=== PATIENT | female | born 1980 | race Caucasian/White ===

== ENCOUNTER → 2017-08-26 08:53 | Outpatient (CLI) | payer OTHER, SELFPAY ==
[2017-08-26 09:55] LABS: Alanine Aminotransferase 20 U/L (12-78); Albumin Level 3.7 gm/dL (3.4-5.0); Albumin/Globulin Ratio 1.2 (1.1-1.8); Alkaline Phosphatase 51 U/L (46-116); Anion Gap 7.5 mEq/L (5-15); Aspartate Amino Transferase 11 U/L (15-37); Bilirubin,Total 0.3 mg/dL (0.2-1.0); Blood Urea Nitrogen 13 mg/dL (7-18); Calcium 8.7 mg/dL (8.5-10.1); Carbon Dioxide 29 mmol/L (21.0-32.0); Chloride 107 mmol/L (98-107); Chol/HDL Ratio 2.6 (1-3.5); Cholesterol 172 mg/dL (140-200); Creatinine,Serum 0.66 mg/dL (0.55-1.02); Estimated Glomerular Filt Rate 100 ml/min (>60); GFR (African American) 121 ML/MIN (>60); Glucose 94 mg/dL (74-106); HDL Cholesterol 66 mg/dL (29-89); LDL Cholesterol 93 mg/dL (0-130); Potassium 4.5 mmoL/L (3.5-5.1); Sodium 139 mmol/L (136-145); Thyroid Stimulating Hormone 1.33 uIU/ml (0.358-3.740); Total Protein,Serum 6.7 gm/dL (6.4-8.2); Triglycerides 66 mg/dL (30-200); VLDL Cholesterol 13 mg/dL (0-40)
== END ==
PROVIDERS: PCP Internal Medicine Adolescent Medicine; Visit Provider Nurse Practitioner Family
DX: Z00.00 Encounter for general adult medical examination without abnormal findings (principal)
CPT/HCPCS: 36415; 80053; 80061; 84443

== ENCOUNTER → 2018-10-27 08:58 | Outpatient (CLI) | payer OTHER, SELFPAY ==
[2018-10-27 11:27] LABS: Alanine Aminotransferase 27 U/L (12-78); Albumin Level 3.9 gm/dL (3.4-5.0); Albumin/Globulin Ratio 1.3 (1.1-1.8); Alkaline Phosphatase 44 U/L (46-116); Anion Gap 14.4 mEq/L (5-15); Aspartate Amino Transferase 15 U/L (15-37); Bilirubin,Total 0.2 mg/dL (0.2-1.0); Blood Urea Nitrogen 12 mg/dL (7-18); Calcium 9.2 mg/dL (8.5-10.1); Carbon Dioxide 27 mmol/L (21.0-32.0); Chloride 104 mmol/L (98-107); Chol/HDL Ratio 2.5 (1-3.5); Cholesterol 161 mg/dL (140-200); Creatinine,Serum 0.78 mg/dL (0.55-1.02); Estimated Glomerular Filt Rate 82 ml/min (>60); GFR (African American) 99 ML/MIN (>60); Glucose 93 mg/dL (74-106); HDL Cholesterol 64 mg/dL (29-89); LDL Cholesterol 75 mg/dL (0-130); Potassium 4.4 mmoL/L (3.5-5.1); Sodium 141 mmol/L (136-145); Thyroid Stimulating Hormone 1.87 uIU/ml (0.358-3.740); Total Protein,Serum 6.9 gm/dL (6.4-8.2); Triglycerides 112 mg/dL (30-200); VLDL Cholesterol 22 mg/dL (0-40)
== END ==
PROVIDERS: Visit Provider Nurse Practitioner Family
DX: Z01.419 Encounter for gynecological examination (general) (routine) without abnormal findings (principal); Z68.31 Body mass index [BMI] 31.0-31.9, adult
CPT/HCPCS: 36415; 80053; 80061; 84443

== ENCOUNTER → 2019-12-21 09:21 | Outpatient (CLI) | payer OTHER, SELFPAY ==
[2019-12-21 10:51] LABS: Basophils % 0.6 % (0.1-2.0); Eosinophils # 0.2 K/mm3 (0.0-0.4); Eosinophils % 2.9 % (0.1-12.0); Hematocrit 40.8 % (37.0-47.0); Hemoglobin 13.4 g/dL (12.2-16.2); Lymphocytes # 1.7 K/mm3 (0.7-4.5); Lymphocytes % 28.7 % (10-50); Mean Corpuscular HGB Conc 32.8 g/dL (31.8-35.4); Mean Corpuscular Hemoglobin 30.3 pg (27.0-31.2); Mean Corpuscular Volume 92.5 fl (81-99); Mean Platelet Volume 8.1 fl (7.4-10.4); Monocytes # 0.4 K/mm3 (0.1-1.0); Monocytes % 6.9 % (1.7-9.3); Neutrophils # 3.7 K/mm3 (1.8-7.8); Neutrophils % 60.9 % (37.0-80.0); Platelet Count 357 K/mm3 (142-424); Red Blood Count 4.41 M/mm3 (4.20-5.40); White Blood Count 6.1 K/mm3 (4.8-10.8)
[2019-12-21 12:17] LABS: Alanine Aminotransferase 17 U/L (12-78); Albumin Level 4.6 g/dl (3.5-5.0); Albumin/Globulin Ratio 1.7 (1.1-1.8); Alkaline Phosphatase 60 U/L (38-126); Anion Gap 13.6 mEq/L (5-15); Aspartate Amino Transferase 23 U/L (14-36); Bilirubin,Total 0.5 mg/dl (0.2-1.3); Blood Urea Nitrogen 12 mg/dl (7-17); Calcium 9.9 mg/dl (8.4-10.2); Carbon Dioxide 27 mmol/L (22.0-30.0); Chloride 103 mmol/L (98-107); Chol/HDL Ratio 2.4 (1-3.5); Cholesterol 197 mg/dl (140-200); Estimated Glomerular Filt Rate 79 ml/min (>60); GFR (African American) 96 ML/MIN (>60); Globulin 2.7 g/dL (1.3-3.2); Glucose 98 mg/dl (74-100); HDL Cholesterol 83 mg/dl (40-60); Potassium 4.6 mmoL/L (3.5-5.1); Sodium 139 mmol/L (136-145); Total Protein,Serum 7.3 g/dl (6.3-8.2); Triglycerides 79 mg/dl (30-150); VLDL Cholesterol 16 mg/dL (0-40)
[2019-12-21 12:29] LABS: Direct LDL Cholesterol 89.74 mg/dL (100-129)
[2019-12-21 12:48] LABS: Thyroid Stimulating Hormone 1.83 uIU/mL (0.465-4.68)
== END ==
PROVIDERS: Visit Provider Nurse Practitioner Family
DX: Z00.00 Encounter for general adult medical examination without abnormal findings (principal)
CPT/HCPCS: 36415; 80053; 80061; 84443; 85025

== ENCOUNTER → 2020-11-07 09:22 | Outpatient (CLI) | payer OTHER, SELFPAY ==
[2020-11-07 10:19] LABS: Chloride 106 mmol/L (98-107); Potassium 4.7 mmoL/L (3.5-5.1); Sodium 140 mmol/L (136-145)
[2020-11-07 10:21] LABS: Alanine Aminotransferase 15 U/L (12-78); Albumin Level 4.4 g/dl (3.5-5.0); Albumin/Globulin Ratio 1.7 (1.1-1.8); Alkaline Phosphatase 57 U/L (38-126); Anion Gap 14.7 mEq/L (5-15); Aspartate Amino Transferase 21 U/L (14-36); Bilirubin,Total 0.2 mg/dl (0.2-1.3); Blood Urea Nitrogen 12 mg/dl (7-17); Carbon Dioxide 24 mmol/L (22.0-30.0); Estimated Glomerular Filt Rate 92 ml/min (>60); GFR (African American) 112 ML/MIN (>60); Globulin 2.6 g/dL (1.3-3.2)
[2020-11-07 10:22] LABS: Calcium 9.5 mg/dl (8.4-10.2); Chol/HDL Ratio 3.3 (1-3.5); Cholesterol 186 mg/dl (140-200); Glucose 99 mg/dl (74-100); HDL Cholesterol 56 mg/dl (40-60); Triglycerides 111 mg/dl (30-150); VLDL Cholesterol 22 mg/dL (0-40)
[2020-11-07 10:33] LABS: Direct LDL Cholesterol 106.85 mg/dL (100-129)
[2020-11-07 10:48] LABS: Basophils % 0.5 % (0.1-2.0); Eosinophils # 0.2 K/mm3 (0.0-0.4); Eosinophils % 3.4 % (0.1-12.0); Hematocrit 40.3 % (37.0-47.0); Hemoglobin 12.7 g/dL (12.2-16.2); Mean Corpuscular HGB Conc 31.6 g/dL (31.8-35.4); Mean Corpuscular Hemoglobin 29.4 pg (27.0-31.2); Mean Corpuscular Volume 93.1 fl (81-99); Mean Platelet Volume 8.3 fl (7.4-10.4); Monocytes # 0.4 K/mm3 (0.1-1.0); Monocytes % 5.7 % (1.7-9.3); Neutrophils # 4.1 K/mm3 (1.8-7.8); Neutrophils % 60.4 % (37.0-80.0); Platelet Count 315 K/mm3 (142-424); Red Blood Count 4.33 M/mm3 (4.20-5.40); Red Cell Distribution Width 13.6 % (11.5-17.5); White Blood Count 6.8 K/mm3 (4.8-10.8)
== END ==
PROVIDERS: Visit Provider Nurse Practitioner Family
DX: Z00.00 Encounter for general adult medical examination without abnormal findings (principal); Z85.3 Personal history of malignant neoplasm of breast
CPT/HCPCS: 36415; 80053; 80061; 85025

== ENCOUNTER → 2021-09-11 08:23 | Outpatient (CLI) | payer OTHER, SELFPAY ==
[2021-09-11 08:51] LABS: Basophils % 0.6 % (0.1-2.0); Eosinophils # 0.2 K/mm3 (0.0-0.4); Eosinophils % 4.2 % (0.1-12.0); Hemoglobin 12.5 g/dL (12.2-16.2); Lymphocytes # 1.7 K/mm3 (0.7-4.5); Lymphocytes % 30.7 % (10-50); Mean Corpuscular HGB Conc 32.9 g/dL (31.8-35.4); Mean Corpuscular Hemoglobin 29.7 pg (27.0-31.2); Mean Corpuscular Volume 90.2 fl (81-99); Mean Platelet Volume 8.3 fl (7.4-10.4); Monocytes # 0.4 K/mm3 (0.1-1.0); Monocytes % 7.1 % (1.7-9.3); Neutrophils # 3.2 K/mm3 (1.8-7.8); Neutrophils % 57.4 % (37.0-80.0); Platelet Count 299 K/mm3 (142-424); Red Blood Count 4.22 M/mm3 (4.20-5.40); Red Cell Distribution Width 13.5 % (11.5-17.5); White Blood Count 5.5 K/mm3 (4.8-10.8)
[2021-09-11 09:12] LABS: Alanine Aminotransferase 22 U/L (12-78); Albumin Level 4.1 g/dl (3.5-5.0); Albumin/Globulin Ratio 1.6 (1.1-1.8); Alkaline Phosphatase 53 U/L (38-126); Anion Gap 11.3 mEq/L (5-15); Aspartate Amino Transferase 25 U/L (14-36); Blood Urea Nitrogen 13 mg/dl (7-17); Calcium 9.5 mg/dl (8.4-10.2); Carbon Dioxide 26 mmol/L (22.0-30.0); Chloride 107 mmol/L (98-107); Chol/HDL Ratio 2.9 (1-3.5); Cholesterol 174 mg/dl (140-200); Estimated Glomerular Filt Rate 92 ml/min (>60); GFR (African American) 111 ML/MIN (>60); Globulin 2.5 g/dL (1.3-3.2); Glucose 111 mg/dl (74-100); HDL Cholesterol 60 mg/dl (40-60); Potassium 4.3 mmoL/L (3.5-5.1); Sodium 140 mmol/L (136-145); Total Protein,Serum 6.6 g/dl (6.3-8.2); Triglycerides 76 mg/dl (30-150); VLDL Cholesterol 15 mg/dL (0-40)
[2021-09-11 09:16] LABS: Bilirubin,Total < 0.1 mg/dl (0.2-1.3)
[2021-09-11 09:23] LABS: Direct LDL Cholesterol 93.85 mg/dL (100-129)
== END ==
PROVIDERS: PCP Nurse Practitioner Family; Visit Provider Nurse Practitioner Family
DX: Z00.00 Encounter for general adult medical examination without abnormal findings (principal); Z85.3 Personal history of malignant neoplasm of breast
CPT/HCPCS: 36415; 80053; 80061; 83036; 85025

== ENCOUNTER → 2022-09-17 08:11 | Outpatient (CLI) | payer OTHER, SELFPAY ==
[2022-09-17 08:47] LABS: Basophils % 0.3 % (0.1-2.0); Eosinophils # 0.2 K/mm3 (0.0-0.4); Eosinophils % 3.5 % (0.1-12.0); Hematocrit 36.9 % (37.0-47.0); Hemoglobin 11.9 g/dL (12.2-16.2); Lymphocytes # 1.7 K/mm3 (0.7-4.5); Lymphocytes % 31.5 % (10-50); Mean Corpuscular HGB Conc 32.2 g/dL (31.8-35.4); Mean Corpuscular Hemoglobin 28.5 pg (27.0-31.2); Mean Corpuscular Volume 88.7 fl (81-99); Mean Platelet Volume 8.4 fl (7.4-10.4); Monocytes # 0.3 K/mm3 (0.1-1.0); Monocytes % 6.2 % (1.7-9.3); Neutrophils # 3.2 K/mm3 (1.8-7.8); Neutrophils % 58.5 % (37.0-80.0); Platelet Count 292 K/mm3 (142-424); Red Blood Count 4.16 M/mm3 (4.20-5.40); White Blood Count 5.5 K/mm3 (4.8-10.8)
[2022-09-17 09:09] LABS: Alanine Aminotransferase 17 U/L (12-78); Albumin Level 4.3 g/dl (3.5-5.0); Albumin/Globulin Ratio 1.9 (1.1-1.8); Alkaline Phosphatase 52 U/L (38-126); Anion Gap 11.4 mEq/L (5-15); Aspartate Amino Transferase 21 U/L (14-36); Blood Urea Nitrogen 14 mg/dl (7-17); Calcium 9.1 mg/dl (8.4-10.2); Carbon Dioxide 26 mmol/L (22.0-30.0); Chloride 108 mmol/L (98-107); Chol/HDL Ratio 2.8 (1-3.5); Cholesterol 183 mg/dl (140-200); Estimated Glomerular Filt Rate 91 ml/min (>60); GFR (African American) 111 ML/MIN (>60); Globulin 2.3 g/dL (1.3-3.2); Glucose 97 mg/dl (74-100); HDL Cholesterol 65 mg/dl (40-60); Potassium 4.4 mmoL/L (3.5-5.1); Sodium 141 mmol/L (136-145); Total Protein,Serum 6.6 g/dl (6.3-8.2); Triglycerides 146 mg/dl (30-150); VLDL Cholesterol 29 mg/dL (0-40)
[2022-09-17 09:14] LABS: Bilirubin,Total 0.1 mg/dl (0.2-1.3)
[2022-09-17 09:20] LABS: Direct LDL Cholesterol 93.07 mg/dL (100-129)
[2022-09-18 09:09] LABS: FSH 5.3 mIU/mL (.); LH 12.3 mIU/mL (.)
== END ==
PROVIDERS: PCP Nurse Practitioner Family; Visit Provider Nurse Practitioner Family
DX: Z00.00 Encounter for general adult medical examination without abnormal findings (principal)
CPT/HCPCS: 36415; 80053; 80061; 83001; 83002; 85025

== ENCOUNTER 2023-12-30 08:31 | Outpatient (CLI) | payer OTHER, SELFPAY ==
[2023-12-30 09:04] LABS: Basophils # 0.1 K/mm3 (0-0.2); Basophils % 1.1 % (0.1-2.0); Eosinophils # 0.2 K/mm3 (0.0-0.4); Eosinophils % 3.3 % (0.1-12.0); Hematocrit 40.1 % (37.0-47.0); Hemoglobin 12.8 g/dL (12.2-16.2); Lymphocytes # 1.8 K/mm3 (0.7-4.5); Lymphocytes % 27.3 % (10-50); Mean Corpuscular Hemoglobin 29.2 pg (27.0-31.2); Mean Corpuscular Volume 91.2 fl (81-99); Mean Platelet Volume 8.1 fl (7.4-10.4); Monocytes # 0.5 K/mm3 (0.1-1.0); Neutrophils # 4.1 K/mm3 (1.8-7.8); Neutrophils % 61.3 % (37.0-80.0); Platelet Count 295 K/mm3 (142-424); Red Cell Distribution Width 14.2 % (11.5-17.5); White Blood Count 6.6 K/mm3 (4.8-10.8)
[2023-12-30 09:09] LABS: Alanine Aminotransferase 18 U/L (12-78); Albumin Level 4.6 g/dl (3.5-5.0); Albumin/Globulin Ratio 1.7 (1.1-1.8); Alkaline Phosphatase 40 U/L (38-126); Anion Gap 11.4 mEq/L (5-15); Aspartate Amino Transferase 27 U/L (14-36); Bilirubin,Total 0.5 mg/dl (0.2-1.3); Blood Urea Nitrogen 15 mg/dl (7-17); Carbon Dioxide 23 mmol/L (22.0-30.0); Chloride 110 mmol/L (98-107); Chol/HDL Ratio 2.6 (1-3.5); Cholesterol 175 mg/dl (140-200); Estimated Glomerular Filt Rate 91 ml/min (>60); GFR (African American) 110 ML/MIN (>60); Globulin 2.7 g/dL (1.3-3.2); Glucose 99 mg/dl (74-100); HDL Cholesterol 67 mg/dl (40-60); Potassium 4.4 mmoL/L (3.5-5.1); Sodium 140 mmol/L (136-145); Total Protein,Serum 7.3 g/dl (6.3-8.2); Triglycerides 122 mg/dl (30-150); VLDL Cholesterol 24 mg/dL (0-40)
[2023-12-30 09:20] LABS: Direct LDL Cholesterol 92.14 mg/dL (100-129)
[2023-12-30 10:15] LABS: Vitamin B12 281 pg/mL (239-931)
[2023-12-30 10:57] LABS: Hemoglobin A1C 5.5 % (4.0-6.0)
[2023-12-30 11:57] LABS: Thyroid Stimulating Hormone 2.21 uIU/mL (0.465-4.68)
[2023-12-30 12:01] LABS: Ferritin 21.8 ng/ml (6.24-137)
== END 2023-12-30 23:59 | disposition home or self-care (01) ==
LOC: LAB 08:32
PROVIDERS: PCP Nurse Practitioner Family; Visit Provider Nurse Practitioner Family
DX: Z00.00 Encounter for general adult medical examination without abnormal findings (principal); R73.01 Impaired fasting glucose; D64.9 Anemia, unspecified
CPT/HCPCS: 36415; 80050; 80053; 80061; 82607; 82728; 82746; 83036; 84443; 85025

== ENCOUNTER 2024-10-05 08:17 | Outpatient (CLI) | payer OTHER, SELFPAY ==
--- OUTSIDE RECORDS SUMMARY | 2024-08-26 06:25 | XMS_ITS | Encounter Summary ---
Author Organization Formerly [facility] Address [address] [place] [address] Care Team Providers Care Oven Attendant Name Role Phone Viola Conde APRN Primary Care Provid er Reason for Visit * Auth/Cert (Routine) Specialty Diagnoses / Procedures Referred By Vince t Referred To Contact Diagnoses Blood in stool [K92.1] Procedures COLONOSCOPY Referral ID Status Reason Start Date Expiration Date Visits Re quested Visits Authorized [id number] 1 1 Encounter Details Date Type Department Care Team (Late st Contact Info) Description 08/26/2024 6:25 AM EDT - 08/26/2024 8:19 AM EDT Hospital Encounter [facility] [address] [place] [address] [place] [address] [place] [address] [place] [phone] Colon cancer screening (Primary Dx); Blood in stool Discharge Disposition: Home or Self Care Social History Tobacco Use Types Packs/Day Years Used Date Smoking Tobacco: Never Assessed Comments Unknown Sex and Gender Information Value Date Recorded Sex Assigned at Not on file Legal Sex Female 7:30 PM EST Gender Identity Not on file Sexual Orientation Not on file documented as of this encounter Last Filed Vital Signs Vital Sign Reading Time Taken Comments Blood Pressure 111/75 08/26/2024 8:09 AM EDT Pulse 73 08/26/2024 8:09 AM EDT Temperature 36.6 C (97.8 F) 08/26/2024 7:54 AM EDT Respiratory Rate 16 08/26/2024 8:09 AM EDT Oxygen Saturation 100% 08/26/2024 8:09 AM EDT Inhaled Oxygen Concentration - - Weight 73.9 kg (163 lb) 08/26/2024 6:48 AM EDT Height 154.9 cm (5' 1 ) 08/26/2024 6:48 AM EDT Body Mass Index 30.8 08/26/2024 6:48 AM EDT documented in this encounter Discharge Instructions * Discharge Instructions* Rehana Tracey RN - 08/26/2024 7:44 AM EDT Endoscopy Colonoscopy Adult Care Instructions Physician Name: Dr. Dan Physician phone number: [phone] Findings: Polyp Follow-up Visit: Polyp removed. Pathology should result in 3 to 5 days in your MyChart. Repeat colonoscopy in 5 to 10 years based on results of pathology. Symptoms you may experience temporarily: Bloating/Cramping Dizziness Drowsiness Pass Gas/Belch Sm Amt of Blood in Stools Call Your Doctor for the following Problems: Fever 101deg or higher Sharp Abdominal Pain Severe Cramping Large Amt of Rectal Bleeding Instructions for the next 24 hours after your Procedure Adult Supervision Do not drink any alcohol Do not work today No important decisions Do not sign any legal documents Rest quietly at home Go Directly Home DO NOT DRIVE Do not operate machinery Discharge Diet: Advance diet as tolerated Additional Information: * Attachments The following attachments cannot be sent through Care Everywhere. * Colorectal Polyps (Discharge Care) (Paraguayan) documented in this encounter Medications at Time of Discharge tamoxifen (NOLVADEX) 20 MG tablet Take 20 mg by mouth daily. documented as of this encounter H&P Notes * Ryan Dan Jr., MD - 08/26/2024 7:36 AM EDT [facility] Patient Identification: Name: Elena Carlin Age: 44 yr/o Sex: female : 1980 Chief complaint: Here for colonoscopy History: Ms. Carlin is a 44 yr/o female who presents for colonoscopy. The patient currently has no complaints. she denies any history of nausea, abdominal pain, weight loss, change in bowel habits or rectal bleeding. Past Medical History: Past Medical History[1] Immunization History See Immunization Record Past Surgical History: Surgical History[2] Home Meds: Medications Prior to Admission Medication Sig Dispense Refill tamoxifen (NOLVADEX) 20 MG tablet Take 20 mg by mouth daily. Current Meds: Current Rx (only name and dose display)[3] Allergies: Allergies as of 08/26/2024 Review status set to Review Complete by Gwendolyn Valdivia RN on 08/26/2024 Severity Noted Reaction Type Reactions Aspirin Not Specified 08/26/2024 Neomycin Not Specified 08/26/2024 Social History: Social History Tobacco Use Smoking status: Not on file Smokeless tobacco: Not on file Substance Use Topics Alcohol use: Not on file Family History: History - Family[4] ROS: per hpi Vitals: BP (!) 124/92 (BP Location: Left arm, Orthostatic Position: Sitting) Pulse 93 Temp 98.3??F (36.8 ??C) (Oral) Resp 16 Ht 5' 1 (1.549 m) Wt 73.9 kg (163 lb) LMP 08/08/2024 (Exact Date) SpO2 98% BMI 30.80 kg/m?? Physical Examination: General appearance: no distress, Well nourished, well developed and well groomed., appears stated age Eyes: pupils are equal, conjunctivae are pink, sclera are non-icteric ENT: ears and nose normal, mucous membranes are moist, hearing is normal Neck: supple, symmetric Lymphatic: no lymphadenopathy or lymphedema Respiratory: unlabored respirations, normal chest wall excursion Cardiovascular: regular rate, no lower extremity edema Gastrointestinal: non-distended, no masses or hernias Musculoskeletal: no cyanosis, muscle tone normal Skin: no rashes or lesions noted Psychiatric: appropriate mood, affect, and insight Impression: Principal Problem: Blood in stool (POA: Unknown) Date Noted: 08/07/2024 Active Problems: Colon cancer screening (POA: Not Applicable) Date Noted: 08/07/2024 44 yr/o female with no symptoms. Plan: Proceed with screening colonoscopy. Generalities of the procedure were described. The risks, benefits, and alternatives were discussed with the patient. These included but, not limited to bleeding, bowel injury, and possible perforation were discussed. I explained that complications could be potentially life threatening and may require surgical intervention. All of the patients questions were answered and the demonstrated understanding. The patient consents to proceed. Ryan Dan JR, MD 08/26/2024 7:36 AM EMR Dragon/Half Section Ironer disclaimer: Much of this encounter note is an electronic senior information systems architect/translation of spoken language to printed text. The electronic translation of spoken language may permit erroneous, or at times, nonsensicalwords or phrases to be inadvertently transcribed; Although I have reviewed the note for such errors, some may still exist. [1] Past Medical History: Diagnosis Date Breast disorder Cancer [2] No past surgical history on file. [3] Current Facility-Administered Medications Medication Dose lactated ringers infusion Facility-Administered Medications Ordered in Other Encounters Medication Dose lidocaine-PF (XYLOCAINE) 2 % injectable propofol (DIPRIVAN) 200 MG/20ML injection [4] No family history on file. documented in this encounter Procedure Notes * Ryan Dan Jr., MD - 08/26/2024 7:56 AM EDTAssociated Order(s): PROVATION PROCEDURE NOTE Patient Name: Elena Carlin Procedure Date No Time: 08/26/2024 Date of : 1980 Gender: Female Attending MD: RYAN DAN JR, MD, [id number] Procedure: Colonoscopy Pre-op Diagnosis: Screening for colorectal malignant neoplasm Providers: RYAN DAN JR, MD Medicines: See the Anesthesia note for documentation of the administered medications Complications: No immediate complications. Procedure: Pre-Anesthesia Assessment: - Prior to the procedure, a History and Physical was performed, and patient medications and allergies were reviewed. The patient is competent. The risks and benefits of the procedure and the sedation options and risks were discussed with the patient. All questions were answered and informed consent was obtained. Patient identification and proposed procedure were verified by the physician, the nurse, the artist suspect and the plastic surgery technician in the endoscopy suite. Mental Status Examination: alert and oriented. Airway Examination: normal oropharyngeal airway and neck mobility. Respiratory Examination: clear to auscultation. CV Examination: normal. Prophylactic Antibiotics: The patient does not require prophylactic antibiotics. Prior Anticoagulants: The patient has taken no anticoagulant or antiplatelet agents. ASA Grade Assessment: II - A patient with mild systemic disease. After reviewing the risks and benefits, the patient was deemed in satisfactory condition to undergo the procedure. The anesthesia plan was to use moderate sedation / analgesia (conscious sedation). Immediately prior to administration of medications, the patient was re-assessed for adequacy to receive sedatives. The heart rate, respiratory rate, oxygen saturations, blood pressure, adequacy of pulmonary ventilation, and response to care were monitored throughout the procedure. The physical status of the patient was re-assessed after the procedure. After I obtained informed consent, the scope was passed under direct vision. Throughout the procedure, the patient's blood pressure, pulse, and oxygen saturations were monitored continuously. The Olympus [id number] Colonoscope was introduced through the anus and advanced to the cecum, identified by appendiceal orifice and ileocecal valve. The colonoscopy was performed without difficulty. The patient tolerated the procedure well. The quality of the bowel preparation was good. The ileocecal valve, appendiceal orifice, and rectum were photographed. Findings: A diminutive polyp was found in the splenic flexure. The polyp was hyperplastic. The polyp was removed with a cold biopsy forceps. Resection and retrieval were complete. Non-bleeding hemorrhoids were found. Estimated Blood Loss: Estimated blood loss: none. Post-op Diagnosis: - One diminutive polyp at the splenic flexure, removed with a cold biopsy forceps. Resected and retrieved. - Non-bleeding hemorrhoids. Recommendation: - Patient has a contact number available for emergencies. The signs and symptoms of potential delayed complications were discussed with the patient. Return to normal activities tomorrow. Written discharge instructions were provided to the patient. - Resume previous diet. - Continue present medications. - Await pathology results. - Repeat colonoscopy in 5-10 years for surveillance. RYAN DAN JR, MD 08/26/2024 7:56:43 AM Number of Addenda: 0 Note Initiated On: 08/26/2024 6:51 AM documented in this encounter Miscellaneous Notes * Operative Report - Ryan Dan Jr., MD - 08/26/2024 7:56 AM EDT Patient Name: Elena Carlin Procedure Date No Time: 08/26/2024 Date of : 1980 Gender: Female Attending MD: RYAN DAN JR, MD, [id number] Procedure: Colonoscopy Pre-op Diagnosis: Screening for colorectal malignant neoplasm Providers: RYAN DAN JR, MD Medicines: See the Anesthesia note for documentation of the administered medications Complications: No immediate complications. Procedure: Pre-Anesthesia Assessment: - Prior to the procedure, a History and Physical was performed, and patient medications and allergies were reviewed. The patient is competent. The risks and benefits of the procedure and the sedation options and risks were discussed with the patient. All questions were answered and informed consent was obtained. Patient identification and proposed procedure were verified by the physician, the nurse, the artist suspect and the plastic surgery technician in the endoscopy suite. Mental Status Examination: alert and oriented. Airway Examination: normal oropharyngeal airway and neck mobility. Respiratory Examination: clear to auscultation. CV Examination: normal. Prophylactic Antibiotics: The patient does not require prophylactic antibiotics. Prior Anticoagulants: The patient has taken no anticoagulant or antiplatelet agents. ASA Grade Assessment: II - A patient with mild systemic disease. After reviewing the risks and benefits, the patient was deemed in satisfactory condition to undergo the procedure. The anesthesia plan was to use moderate sedation / analgesia (conscious sedation). Immediately prior to administration of medications, the patient was re-assessed for adequacy to receive sedatives. The heart rate, respiratory rate, oxygen saturations, blood pressure, adequacy of pulmonary ventilation, and response to care were monitored throughout the procedure. The physical status of the patient was re-assessed after the procedure. After I obtained informed consent, the scope was passed under direct vision. Throughout the procedure, the patient's blood pressure, pulse, and oxygen saturations were monitored continuously. The Olympus [id number] Colonoscope was introduced through the anus and advanced to the cecum, identified by appendiceal orifice and ileocecal valve. The colonoscopy was performed without difficulty. The patient tolerated the procedure well. The quality of the bowel preparation was good. The ileocecal valve, appendiceal orifice, and rectum were photographed. Findings: A diminutive polyp was found in the splenic flexure. The polyp was hyperplastic. The polyp was removed with a cold biopsy forceps. Resection and retrieval were complete. Non-bleeding hemorrhoids were found. Estimated Blood Loss: Estimated blood loss: none. Post-op Diagnosis: - One diminutive polyp at the splenic flexure, removed with a cold biopsy forceps. Resected and retrieved. - Non-bleeding hemorrhoids. Recommendation: - Patient has a contact number available for emergencies. The signs and symptoms of potential delayed complications were discussed with the patient. Return to normal activities tomorrow. Written discharge instructions were provided to the patient. - Resume previous diet. - Continue present medications. - Await pathology results. - Repeat colonoscopy in 5-10 years for surveillance. RYAN DAN JR, MD 08/26/2024 7:56:43 AM Number of Addenda: 0 Note Initiated On: 08/26/2024 6:51 AM documented in this encounter Plan of Treatment Upcoming Encounters Date Type Department Care Team (Late st Contact Info) Description 01/08/2025 8:00 AM EST Office Visit [facility] [address] [address] Deepika Patten APRN [address] [place] [address] [place] [address] documented as of this encounter Procedures Procedure Name Priority Date/Time Associated Diagnosis Comments PROVATION PROCEDURE NOTE 08/26/2024 7:56 AM EDT SURGICAL SPECIMEN Routine 08/26/2024 7:4 5 AM EDT Colon cancer screening Blood in stool COLONOSCOPY WITH POLYPECTOMY 08/26/2024 7:25 AM EDT Colon cancer screening Blood in stool POCT [facility] ([facility]) STAT 08/26/2024 6:54 AM EDT documented in this encounter Results * PROVATION PROCEDURE NOTE (08/26/2024 7:56 AM EDT) Narrative Procedure Note Ryan Dan Jr., MD - 08/26/2024 7:56 AM EDT Patient Name: Elena Carlin Procedure Date No Time: 08/26/2024 Date of : 1980 Gender: Female Attending MD: RYAN DAN JR, MD, [id number] Procedure: Colonoscopy Pre-op Diagnosis: Screening for colorectal malignant neoplasm Providers: RYAN DAN JR, MD Medicines: See the Anesthesia note for documentation of the administered medications Complications: No immediate complications. Procedure: Pre-Anesthesia Assessment: - Prior to the procedure, a History and Physicalwas performed, and patient medications and allergieswere reviewed. The patient is competent. The risks and benefits of the procedure and the sedation optionsand risks were discussed with the patient. Allquestions were answered and informed consent was obtained. Patient identification and proposed procedure were verified by the physician, the nurse, theanesthetist and the plastic surgery technician in the endoscopy suite. Mental Status Examination: alert and oriented. Airway Examination: normal oropharyngeal airway and neck mobility. Respiratory Examination: clear to auscultation. CV Examination: normal. Prophylactic Antibiotics: The patient does not requireprophylactic antibiotics. Prior Anticoagulants: The patient has taken no anticoagulant or antiplatelet agents. ASA Grade Assessment: II - A patient with mild systemic disease. After reviewing the risks and benefits,the patient was deemed in satisfactory condition to undergo the procedure. The anesthesia plan was touse moderate sedation / analgesia (conscious sedation). Immediately prior to administration of medications, the patient was re-assessed for adequacy to receive sedatives. The heart rate, respiratory rate, oxygen saturations, blood pressure, adequacy of pulmonary ventilation, and response to care were monitored throughout the procedure. The physical status ofthe patient was re-assessed after the procedure. After I obtained informed consent, the scope was passed under direct vision. Throughout theprocedure, the patient's blood pressure, pulse, and oxygen saturations were monitored continuously. TheVisitarpus [id number] Colonoscope was introduced through theanus and advanced to the cecum, identified byappendiceal orifice and ileocecal valve. The colonoscopy was performed without difficulty. The patient tolerated the procedure well. The quality of the bowel preparation was good. The ileocecal valve,appendiceal orifice, and rectum were photographed. Findings: A diminutive polyp was found in the splenic flexure. The polyp was hyperplastic. The polyp was removed with a cold biopsy forceps. Resection and retrieval were complete. Non-bleeding hemorrhoids were found. Estimated Blood Loss: Estimated blood loss: none. Post-op Diagnosis: - One diminutive polyp at the splenic flexure,removed with a cold biopsy forceps. Resected andretrieved. - Non-bleeding hemorrhoids. Recommendation: - Patient has a contact number available for emergencies. The signs and symptoms of potential delayed complications were discussed with thepatient. Return to normal activities tomorrow. Written discharge instructions were provided to thepatient. - Resume previous diet. - Continue present medications. - Await pathology results. - [facility] RYAN DAN JR, MD 08/26/2024 7:56:43 AM Number of Addenda: 0 Note Initiated On: 08/26/2024 6:51 AM Ryan Dan Jr., MD SURGICAL CASE ORDERS Fi nal Result * Surgical Specimen: Colon, Splenic Flexure (08/26/2024 7:45 AM EDT) Case Report Surgical Pathology Report Case: [id number] Authorizing Provider: Ryan Dan Jr., MD Collected: 08/26/2024 0745 Ordering Location: [facility] Endoscopy Received: 08/26/2024 1017 Pathologist: Tanner Lewis MD Specimen: Colon, Splenic Flexure, SPLENIC FLEXURE POLYP 08/27/2024 9:47 AM EDT [facility] Diagnosis SPLENIC FLEXURE COLON POLYP, BIOPSY: LARGE INTESTINAL MUCOSA WITHOUT PATHOLOGIC DIAGNOSIS. NO INFLAMMATION OR HYPERPLASTIC CHANGE IDENTIFIED. NO ADENOMATOUS CHANGE OR MALIGNANCY IDENTIFIED. 08/27/2024 9:47 AM EDT [facility] at 0947 EDT Clinical History BLOOD IN STOOL [K92.1] 08/27/2024 9:47 AM EDT [facility] Microscopic Description Microscopic examination performed. 08/27/2024 9:47 AM EDT [facility] Gross Description Received in formalin labeled splenic flexure polyp is a 0.1 x 0.1 x 0.1 cm pink-gongora ovoid soft tissue fragment submitted in toto as A1. Fixation time is between 6-72 hours. MIMI Mcgill (ASCP), 08/26/2024, ks 08/27/2024 9:47 AM EDT [facility] Sign Out Location [facility] [place] [address] 08/27/2024 9:47 AM EDT [facility] Tissue (Colon, Splenic Flexure) 08/26/2024 7:45 AM EDT 08/26/2024 10:17 AM EDT Comment:Pre-op diagnosis: Blood in stool [K92.1] Ryan Dan Jr., MD PATHOLOGY/CYTOLOGY ORDE DEMETRIUS Final Result [facility] [address] [facility] [address] [place], [place] [id number] * POC HCGU (Approved Hospitals ONLY) (08/26/2024 6:54 AM EDT) HCGU Negative Negative POCT [facility] QC Acceptable POCT [facility] Lot Number [id number] POCT [facility] Expiration Date 12/13/2025 POCT [facility] Comment POCT [facility] URINE SPECIMEN / Unknown 08/26/2024 6:54 AM EDT Porsche Bradford CRNA POINT OF CARE TEST ORDERAB LES Final Result [facility] [address] [place] [address], [facility] [phone] documented in this encounter Visit Diagnoses Diagnosis Blood in stool- Primary Colon cancer screening Special screening for malignant neoplasms, colon Blood in stool Colon cancer screening Special screening for malignant neoplasms, colon documented in this encounter Admitting Diagnoses Diagnosis Blood in stool Colon cancer screening Special screening for malignant neoplasms, colon documented in this encounter Administered Medications Inactive Administered Medications - up to 3 most recent administrations Medication Order MAR Action Action Date Dose Rate Site glycopyrrolate (ROBINUL) injection 0.2 mg 0.2 mg, Intravenous, Once, On Mon08/26/24 at 0700, For 1 dose, 1 mL, Pre-op, Routine Given 08/26/2024 7:06 AM EDT 0.2 mg lactated ringers infusion Intravenous, at 25 mL/hr, Continuous, Starting on Mon08/26/24 at 0645, 1,000 mL, Until Mon08/26/24 at 1022, Pre-op, Routine Restarted 08/26/2024 7:45 AM EDT Intraop Orders continued from Pre-op 08/26/2024 7:33 AM ED T 25 mL/hr New Bag 08/26/2024 7:01 AM EDT 25 mL/hr ondansetron (ZOFRAN) injection 4 mg 4 mg, Intravenous, Once as needed, Nausea, Starting on Mon08/26/24 at 0746, For 1 dose, 2 mL, Until Mon08/26/24 at 1022, Post-op, Routine documented in this encounter Active and Recently Administered Medications Times are shown in EDT. Scheduled Medication Order 08/24/2024 08/25/2024 08/26/2024 glycopyrrolate (ROBINUL) injection 0.2 mg (COMPLETED) 0.2 mg, Intravenous, Once, On Mon08/26/24 at 0700, For 1 dose, 1 mL, Pre-op, Routine 0706 (Given - Provid er: Deepika Galindo RN) Continuous Medication Order 08/24/2024 08/25/2024 08/26/2024 lactated ringers infusion Intravenous, at 25 mL/hr, Continuous, Starting on Mon08/26/24 at 0645, 1,000 mL, Until Mon08/26/24 at 1022, Pre-op, Routine 0701 (New Bag - Prov ider: Gwendolyn Valdivia RN)0733 (Intraop Orders continued from Pre-op - Provider: Lina Maldonado CRNA)0744 (Paused - Provider: Lina Maldonado CRNA - Comment: Switch to gravity)0745 (Restarted - Provider: Lina Maldonado CRNA) PRN Medication Order 08/24/2024 08/25/2024 08/26/2024 ondansetron (ZOFRAN) injection 4 mg 4 mg, Intravenous, Once as needed, Nausea, Starting on Mon08/26/24 at 0746, For 1 dose, 2 mL, Until Mon08/26/24 at 1022, Post-op, Routine documented in this encounter Care Teams Oven Attendant Relationship Specialty Start Date End Date Viola Conde APRN [address] [place] [address], [address] [place] [address] PCP - General Nurse Practitioner Family 01/06/24 documented as of this encounter
--- OUTSIDE RECORDS SUMMARY | 2024-08-26 07:30 | XMS_ITS | Encounter Summary ---
Author Organization [facility] Address [address] [place] [address] Care Team Providers Care Solar Project Manager Name Role Phone Viola Conde APRN Primary Care Provid er Reason for Visit * Auth/Cert (Routine) Specialty Diagnoses / Procedures Referred By Vince t Referred To Contact Diagnoses Blood in stool [K92.1] Procedures COLONOSCOPY Referral ID Status Reason Start Date Expiration Date Visits Re quested Visits Authorized [id number] 1 1 Encounter Details Date Type Department Care Team (Late st Contact Info) Description 08/26/2024 7:30 AM EDT - 08/26/2024 8:00 AM EDT Surgery [facility] [address] [place] [address] Ryan Dan Jr., MD [address] [facility] [address] [place] [address] COLONOSCOPY WITH POLYPECTOMY Social History Tobacco Use Types Packs/Day Years Used Date Smoking Tobacco: Never Assessed Comments Unknown Sex and Gender Information Value Date Recorded Sex Assigned at Not on file Legal Sex Female 7:30 PM EST Gender Identity Not on file Sexual Orientation Not on file documented as of this encounter Last Filed Vital Signs Vital Sign Reading Time Taken Comments Blood Pressure 103/65 08/26/2024 7:54 AM EDT Pulse 79 08/26/2024 7:54 AM EDT Temperature 36.6 C (97.8 F) 08/26/2024 7:54 AM EDT Respiratory Rate 16 08/26/2024 7:54 AM EDT Oxygen Saturation 98% 08/26/2024 7:54 AM EDT Inhaled Oxygen Concentration - - Weight 73.9 kg (163 lb) 08/26/2024 6:48 AM EDT Height 154.9 cm (5' 1 ) 08/26/2024 6:48 AM EDT Body Mass Index 30.8 08/26/2024 6:48 AM EDT documented in this encounter Discharge Instructions * Discharge Instructions* Rehana Tracey RN - 08/26/2024 7:44 AM EDT Endoscopy Colonoscopy Adult Care Instructions Physician Name: Dr. Dan Physician phone number: [phone] Findings: Polyp Follow-up Visit: Polyp removed. Pathology [...] Care Everywhere. * Colorectal Polyps (Discharge Care) (Estonian) documented in this encounter Medications at Time of Discharge tamoxifen (NOLVADEX) 20 MG tablet Take 20 mg by mouth daily. documented as of this encounter H&P Notes * Ryan Dan Jr., MD - 08/26/2024 7:36 AM EDT [facility] Patient Identification: [...] Dan JR, MD 08/26/2024 7:36 AM EMR Dragon/Surveyor Helper disclaimer: Much of this encounter note is an electronic ground service equipment mechanic/translation of spoken language to printed text. The [...] Female Attending MD: RYAN DAN JR, MD, [id number] Procedure: Colonoscopy Pre-op Diagnosis: Screening for colorectal [...] verified by the physician, the nurse, the research anthropologist and the elevator technician in the endoscopy suite. Mental Status [...] oxygen saturations were monitored continuously. The Olympus [id number] Colonoscope was introduced through the anus and [...] Female Attending MD: RYAN DAN JR, MD, [id number] Procedure: Colonoscopy Pre-op Diagnosis: Screening for colorectal [...] verified by the physician, the nurse, the research anthropologist and the elevator technician in the endoscopy suite. Mental Status [...] oxygen saturations were monitored continuously. The Olympus [id number] Colonoscope was introduced through the anus and [...] [facility], [facility] Part of [facility]'s [address] [place] [address] Deepika Patten APRN [address] [place] [address] [place] [address] documented as of this encounter Procedures Procedure Name Priority Date/Time Associated Diagnosis Comments PROVATION PROCEDURE NOTE 08/26/2024 7:56 AM EDT SURGICAL SPECIMEN Routine 08/26/2024 7:4 5 AM EDT Colon cancer screening Blood in stool COLONOSCOPY WITH POLYPECTOMY 08/26/2024 7:25 AM EDT Colon cancer screening Blood in stool POCT HCGU ([facility] ONLY) STAT 08/26/2024 6:54 AM EDT documented in this encounter Results * PROVATION PROCEDURE NOTE (08/26/2024 7:56 AM EDT) Narrative Procedure Note Ryan Dan Jr., MD - 08/26/2024 7:56 AM EDT Patient Name: Elena Carlin Procedure Date No Time: 08/26/2024 Date of : 1980 Gender: Female Attending MD: RYAN DAN JR, MD, [id number] Procedure: Colonoscopy Pre-op Diagnosis: Screening for colorectal [...] the physician, the nurse, theanesthetist and the elevator technician in the endoscopy suite. Mental Status [...] pulse, and oxygen saturations were monitored continuously. [employer] [id number] Colonoscope was introduced through theanus and advanced [...] results. - Repeat colonoscopy in 5-10 years forsurveillance. RYAN DAN JR, MD 08/26/2024 7:56:43 AM Number of Addenda: 0 Note Initiated On: 08/26/2024 6:51 AM Ryan Dan Jr., MD SURGICAL CASE ORDERS Fi nal Result * Surgical Specimen: Colon, Splenic Flexure (08/26/2024 7:45 AM EDT) Case Report Surgical Pathology Report Case: [id number] Authorizing Provider: Ryan Dan Jr., MD Collected: 08/26/2024 0745 Ordering Location: [facility] Endoscopy Received: 08/26/2024 1017 Pathologist: Tanner Lewis [...] AM EDT [facility] Sign Out Location [facility] [address] [place] [address] 08/27/2024 9:47 AM EDT [facility] Tissue (Colon, Splenic Flexure) 08/26/2024 7:45 AM EDT 08/26/2024 10:17 AM EDT Comment:Pre-op diagnosis: Blood in stool [K92.1] Ryan Dan Jr., MD PATHOLOGY/CYTOLOGY ADELE ROMO Final Result [facility] [address] [facility] [address] [place] [address] * POC HCGU (Approved Hospitals ONLY) (08/26/2024 6:54 AM EDT) [facility]CGU Negative Negative [facility] Lot Number [id number] POCT [facility] Expiration Date 12/13/2025 POCT [facility] Comment [facility] URINE SPECIMEN / Unknown 08/26/2024 6:54 AM EDT Porsche Bradford CRNA POINT OF CARE TEST ORDERAB LES Final Result [facility] [address] [place] [address], [facility] [phone] documented in this encounter Visit Diagnoses Diagnosis Blood in stool- Primary Colon cancer screening Special screening for malignant neoplasms, colon Blood in stool Colon cancer screening Special screening for malignant neoplasms, colon Colon cancer screening Special screening for malignant neoplasms, colon Blood in stool documented in this encounter Admitting Diagnoses Diagnosis [...] Routine documented in this encounter Care Teams Solar Project Manager Relationship Specialty Start Date End Date Viola Conde APRN [address] [place] [address], [address] [place] [address] PCP - General Nurse Practitioner Family 01/06/24 documented as of this encounter
--- OUTSIDE RECORDS SUMMARY | 2024-08-26 07:33 | XMS_ITS | Encounter Summary ---
Author Organization [facility] Address [address] [place] [address] Care Team Providers Care Residential Door Installer Name Role Phone Viola Conde ELECTRONIC TECHNOLOGIST Primary Care Provid er Reason for Visit * Auth/Cert (Routine) Specialty Diagnoses / Procedures Referred By Vince harris Referred To Contact Diagnoses Blood in stool [K92.1] Procedures COLONOSCOPY Referral ID Status Reason Start Date Expiration Date Visits Re quested Visits Authorized [id number] 1 1 Encounter Details Date Type Department Care Team (Late st Contact Info) Description 08/26/2024 7:33 AM EDT Anesthesia Event [facility] Endoscopy [address] [place] [address] Lina Maldonado CRNA Robbins, Lindsey, APRN [address] [phone] Anesthesia Record Procedure Summary Procedure Name Responsible Anesthesiologist Anesthesia Start Time Anesthesia Stop Time COLONOSCOPY WITH POLYPECTOMY Lina Maldonado CRNA 08/26/24 0733 08/26/24 0751 Events Date Time Event Comment 08/26/2024 0718 0733 An Start 0733 Out of OR Data 0750 Out of OR Stop Data 0750 Anesthesia Handoff Lina baird handed off to Recovery nurse. 0751 An Stop Meds Name Total lidocaine inj 60 mg propofol 200 MG/20ML 230 mg lactated ringers infusion 400 mL * Agents Name O2 * Blood No blood administrations on file. Lines, Drains, and Airways Type Details Placement Removal ADULT Peripheral IV Size: 20 G; Orientation: Left; Location: Hand; Site Prep: Alcohol; Insertion attempts: 1; Patient Tolerance: Tolerated well 08/26/24 0701 by Gwendolyn Valdivia RN 08/26/24 0813 by Rehana Tracey RN Airway - Non-ETT Airway Device: Nasal Cannula 08/26/24 0718 by Lina Maldonado CRNA 08/26/24 0756 by Rehana Tracey, HORTENCIA documented in this encounter Social History Tobacco Use Types Packs/Day Years Used Date Smoking Tobacco: Never Assessed Comments Unknown Sex and Gender Information Value Date Recorded Sex Assigned at Not on file Legal Sex Female 7:30 PM EST Gender Identity Not on file Sexual Orientation Not on file documented as of this encounter Last Filed Vital Signs Vital Sign Reading Time Taken Comments Blood Pressure 126/84 08/26/2024 7:46 AM EDT Pulse - - Temperature - - Respiratory Rate - - Oxygen Saturation 100% 08/26/2024 7:50 AM EDT Inhaled Oxygen Concentration - - Weight - - Height - - Body Mass Index - - documented in this encounter OR Notes * Anesthesia Postprocedure Evaluation - Lina Maldonado CRNA - 08/26/2024 7:50 AM EDT Post-Anesthesia Evaluation Patient: Elena Carlin Patient is stable postoperatively and has adequately recovered from anesthesia as described below unless otherwise noted. Patient is determined to have stable airway patency and respiratory function including respiratory rate and oxygen saturation. Patient has a stable heart rate, blood pressure and adequate hydration. Patient's mental status is acceptable. Patient's temperature is appropriate. Pain and nausea are adequately controlled. Patient Vitals for the past 24 hrs (Last 1 readings): BP Temp Temp src Pulse Resp SpO2 Height Weight 08/26/24 0750 (!) 126/84 -- -- 76 16 100 % -- -- 08/26/24 0648 (!) 124/92 36.8 ??C (98.3 ??F) Oral 93 16 98 % 1.549 m 73.9 kg Anesthesia complications or comments: None * Anesthesia Preprocedure Evaluation - Porsche Bradford CRNA - 08/26/2024 6:52 AM EDT Relevant Problems No relevant active problems Review of Systems Patient summary reviewed. nursing notes reviewed. Allergies Reviewed: Aspirin and Neomycin No history of anesthetic complications. Endo: Additional comments: HX BREAST CANCER GI: Positive (+) for bowel prep. ROS Additional Findings: 44 yr/o female present for a COLONOSCOPY Allergies: -- Aspirin -- Neomycin No past surgical history on file. NPO with SOLIDS since midnight. Vitals: BP (!) 124/92 (BP Location: Left arm, Orthostatic Position: Sitting) Pulse 93 Temp 36.8 ??C (98.3 ??F) (Oral) Resp 16 Ht 1.549 m Wt 73.9 kg LMP 08/08/2024 (Exact Date) SpO2 98% BMI 30.80 kg/m?? Physical Exam Airway: Mallampati: I TM distance: >3 FB Neck ROM: Full Dental: Dental exam normal. Anesthesia Plan ASA: 2 Anesthesia Plan: MAC Anesthesia Plan Comments: Risks and benefits of MAC were discussed, including, but not limited to: potential for awareness inherent to safe conduct of MAC, conversion to GA, allergy, damage to the oral/dental structures, heart/lungs/brain and . Patient understands and agrees to the proposed ane sthetic plan and wishes to proceed. Induction: Intravenous Maintenance: Intravenous Lines: PIV and exisiting line Premedication: Glycopyrrolate Planned Post Procedure Care: Outpatient and PACU Anesthetic Plan and Risks discussed with: Patient. Risk and benefits of anesthesia explained. Informed consent obtained. Plan discussed with: ABDOULAYE documented in this encounter Plan of Treatment Upcoming Encounters Date Type Department Care Team (Late st Contact Info) Description 01/08/2025 8:00 AM EST Office Visit [facility]'s [address] [place] [address] Deepika Patten APRN [address] [facility] [address] [place], [place] [id number] documented as of this encounter Visit Diagnoses Not on filedocumented in this encounter Administered Medications Inactive Administered Medications - up to 3 most recent administrations Medication Order MAR Action Action Date Dose Rate Site lactated ringers infusion Intravenous, at 25 mL/hr, Continuous, Starting on Mon08/26/24 at 0645, 1,000 mL, Until Mon08/26/24 at 1022, Pre-op, Routine Restarted 08/26/2024 7:45 AM EDT Intraop Orders continued from Pre-op 08/26/2024 7:33 AM ED T 25 mL/hr New Bag 08/26/2024 7:01 AM EDT 25 mL/hr lidocaine-PF (XYLOCAINE) 2 % injectable Intravenous, PRN, Starting on Mon08/26/24 at 0735, Until Mon08/26/24 at 0751, Anesthesia Intra-op, Routine Given 08/26/2024 7:35 AM EDT 60 mg propofol (DIPRIVAN) 200 MG/20ML injection Intravenous, PRN, Starting on Mon08/26/24 at 0735, Until Mon08/26/24 at 0751, Anesthesia Intra-op, Routine Given 08/26/2024 7:50 AM EDT 30 mg Given 08/26/2024 7:45 AM EDT 100 mg Given 08/26/2024 7:35 AM EDT 100 mg documented in this encounter Care Teams Residential Door Installer Relationship Specialty Start Date End Date Viola Conde APRN [address] [facility], [address] [place] [address] PCP - General Nurse Practitioner Family 01/06/24 documented as of this encounter
--- OUTSIDE RECORDS SUMMARY | 2024-10-05 08:22 | XMS_ITS | Encounter Summary ---
Author Organization Healthcare Address [address] [place] [address] Care Team Providers Care Surface Miner Name Role Phone Viola Conde APRN Primary Care Provider +- [phone] Nadia Mares MD Unavailable [phone] Encounter Details Date Type Department Care Team (Late Contact Info) Description 09/02/2019 Abstract [facility] [address] [place] [address] Brielle Blanca, RN EMERGENCY SERVICES Social History Tobacco Use Types Packs/Day Years Used Date Smoking Tobacco: Never Assessed Comments Unknown Sex and Gender Information Value Date Recorded Sex Assigned at Not on file Legal Sex Female 8:25 PM EDT Gender Identity Not on file Sexual Orientation Not on file documented as of this encounter Plan of Treatment Upcoming Encounters Date Type Department Care Team (Late st Contact Info) Description 12/03/2024 10:30 AM EDT Office Visit [facility] [address] [facility], [address]nd [place] [address] Nadia Mares MD [address] [facility] [address] [place] [address] documented as of this encounter Visit Diagnoses Not on filedocumented in this encounter Care Teams Surface Miner Relationship Specialty Start Date End Date Viola Conde APRN [address] [address] PCP - General 07/03/20 Nadia Mares MD [address] [facility] [address] [address] Consulting Physician Hematology and Oncology 06/04/23 documented as of this encounter
--- OUTSIDE RECORDS SUMMARY | 2024-10-05 08:22 | XMS_ITS | Encounter Summary ---
Author Organization [facility] Address [address] [id number] Care Team Providers Care Process Planner Name Role Phone Viola Conde Brennan GARNER Primary Care Provider [phone] Nadia Mares MD Unavailable [phone] Encounter Details Date Type Department Care Team ([facility] Contact Info) Description 06/17/2024 Lab Requisition [facility] [address] [place] [address] Nadia Mares MD 800 [facility] [address] [place] [address] Malignant neoplasm of upper-inner quadrant of right female breast; Estrogen receptor positive status (ER+) Social History Tobacco Use Types Packs/Day Years Used Date Smoking Tobacco: Never Passive Smoke Exposure: Never Smokeless Tobacco: Never Alcohol Use Standard Drinks/Week Comments Yes 3 (1 standard drink = 0.6 oz pur e alcohol) 1-2 glasses wine/week PHQ-2 Answer Date Recorded Patient Health Questionnaire-2 Score 0 06/06/2024 PHQ-9 Answer Date Recorded Patient Health Questionnaire-9 Score 0 06/06/2024 Comments No Sex and Gender Information Value Date Recorded Sex Assigned at Not on file Legal Sex Female 8:25 PM EDT Gender Identity Not on file Sexual Orientation Not on file documented as of this encounter Plan of Treatment Upcoming Encounters Date Type Department Care Team ([facility] Contact Info) Description 12/03/2024 10:30 AM EDT Office Visit [facility] [address] [facility], [address]nd [place] [address] Nadia Mares MD [address] [facility] Elena Julian dg [address] [place] [address] documented as of this encounter Procedures Procedure Name Priority Date/Time Associated Diagnosis Comments AP MISCELLANEOUS LAB TEST (SO) Routine 06/17/2024 1:38 PM EDT Malignant neoplasm of upper-inner quadrant of right female breast Estrogen receptor positive status (ER+) documented in this encounter Results * - AP Miscellaneous Test (06/17/2024 1:38 PM EDT) Test name Breast Cancer Index, [employer] 06/27/2024 2:40 PM EDT [facility] Comment:[id number], D5 Test Result See scan for results 06/27/2024 2:40 PM EDT [facility] See Scanned Result 06/27/2024 2:40 PM EDT [facility] Tissue 06/17/2024 1:38 PM EDT 06/17/2024 1:38 PM EDT us Nadia Mares MD LAB REF LAB BLOOD AND FLUID O RD Final Result [facility] [address] [place] [address] documented in this encounter Visit Diagnoses Diagnosis Malignant neoplasm of upper-inner quadrant of right female breast Estrogen receptor positive status (ER+) Estrogen receptor positive status [ER+] documented in this encounter Additional Health Concerns Assessment Noted Time PHQ-9 Depression Total Score: 0 06/07/19 25 7:09 PM EDT A fall risk assessment has been complete d for the patient 06/10/2024 11:12 AM EDT A Body Mass Index follow-up plan has been documented for the patient 06/07/2024 8:47 AM EDT documented as of this encounter Care Teams Process Planner Relationship Specialty Start Date End Date Viola Conde APRN [address] [address] PCP - General 07/03/20 Nadia Mares MD [address] [facility] [address] [place] [address] Consulting Physician Hematology and Oncology 06/04/23 documented as of this encounter
--- OUTSIDE RECORDS SUMMARY | 2024-10-05 08:22 | XMS_ITS | Clinical Summary ---
Author Organization [facility] Address [address] [place] [address] Care Team Providers Care Window Shade Estimator Name Role Phone Viola Conde QUALITY ASSURANCE NURSE Primary Care Provid er Allergies Active Allergy Reactions Criticality Noted Date Comments Aspirin 08/26/2024 Neomycin 08/26/2024 Medications tamoxifen (NOLVADEX) 20 MG tablet Take 20 mg by mouth daily. Active Active Problems Problem Noted Date Diagnosed Date Blood in stool 08/07/2024 Colon cancer screening 08/07/2024 Encounters Date Type Department Care Team Description 09/02/2024 Results Follow-Up [facility] Endoscopy [address] [place] [address] Ryan Dan Jr., MD Surgical Specimen: Colon, Splenic Flexure 08/26/2024 7:33 AM EDT Anesthesia Event [facility] Endoscopy [address] [place] [address] Lina Maldonado CRNA Robbins, Lindsey, APRN 08/26/2024 7:30 AM EDT - 08/26/2024 8:00 AM EDT Surgery [facility] Endoscopy [address] [place] [address] Ryan Dan Jr., MD COLONOSCOPY WITH POLYPECTOMY 08/26/2024 6:25 AM EDT - 08/26/2024 8:19 AM EDT Hospital Encounter [facility] Endoscopy [address] [place] [address] Ryan Dan Jr., MD Colon cancer screening (Primary Dx); Blood in stool Discharge Disposition: Home or Self Care from Last 3 Months Social History Tobacco Use Types Packs/Day Years Used Date Smoking Tobacco: Never Assessed Comments Unknown Sex and Gender Information Value Date Recorded Sex Assigned at Not on file Legal Sex Female 7:30 PM EST Gender Identity Not on file Sexual Orientation Not on file Last Filed Vital Signs Vital Sign Reading [...] Mass Index 30.8 08/26/2024 6:48 AM EDT Plan of Treatment Upcoming Encounters Date Type Department Care Team (Late st Contact Info) Description 01/08/2025 8:00 AM EST Office Visit [facility]'s Care [address] [place] [address] [place] [address] Deepika Patten APRN [address] [place] [address] [place] [id number] Health Maintenance Due Date Last Done Comments Breast Cancer Screening 1979 CT Colonography 1979 FIT-DNA 1979 FIT 1979 FOBT 1980 Sigmoidoscopy 1980 Cervical Cancer Screening 07/10/2000 Hepatitis B (HepB) Vaccine (2 of 3 - 19+ 3-dose series) 2003 06/13/2003 HPV Vaccine (1 - 3-dose SCDM series) 07/10/2006 Annual SDOH Screening 02/21/2024 Influenza Vaccine (#1) 2024 , 12/12/2022, 11/13/2021, Additional history exists Tdap/Td Vaccine >11 yo (3 - Td or Tdap) 09/17/2032 09/17/2022, 03/21/2012 Colonoscopy 08/26/2034 08/26/2024 Colorectal Cancer Screening 08/26/2034 Hepatitis A (HepA) Vaccine Aged Out 09/27/2018, No longer eligible based on patient's age to complete this topic Haemophilus Influenzae Type B (Hib) Vaccine Aged Out No longer eligible based on patient's age to complete this topic Meningococcal ACWY Aged Out No longer eligible based on patient's age to complete this topic Pneumococcal Vaccines 6-49 yo Risk Aged Out No longer eligible based on patient's age to complete this topic Polio (IPV) Aged Out No longer eligi ble based on patient's age to complete this topic Rotavirus (RV) Vaccine Aged Out No lo nger eligible based on patient's age to complete this topic Procedures Procedure Name Priority Date/Time Associated Diagnosis Comments PROVATION PROCEDURE NOTE 08/26/2024 7:56 AM EDT SURGICAL SPECIMEN Routine 08/26/2024 7:4 5 AM EDT Colon cancer screening Blood in stool COLONOSCOPY WITH POLYPECTOMY 08/26/2024 7:25 AM EDT Colon cancer screening Blood in stool POCT H[facility] ([facility] ONLY) STAT 08/26/2024 6:54 AM EDT from Last 3 Months Results * PROVATION PROCEDURE NOTE (08/26/2024 7:56 AM EDT) Narrative Procedure Note Ryan Dan Jr., MD - 08/26/2024 7:56 AM EDT Patient Name: Elena Carlin Procedure Date No Time: 08/26/2024 Date of : 1980 Gender: Female Attending MD: RYAN DAN JR, MD, [id number] Procedure: Colonoscopy Pre-op Diagnosis: Screening for colorectal [...] the physician, the nurse, theanesthetist and the technician telecommunication systems in the endoscopy suite. Mental Status Examination: [...] pulse, and oxygen saturations were monitored continuously. [employer] [id number] Colonoscope was introduced through theanus and advanced [...] EDT) Case Report Surgical Pathology Report Case: [id number] Authorizing Provider: Ryan Dan Jr., MD Collected: 08/26/2024 0745 Ordering Location: [facility] Endoscopy Received: 08/26/2024 1017 Pathologist: Tanner Lewis [...] AM EDT [facility] Sign Out Location [facility] [address] [place] [address] 08/27/2024 9:47 AM EDT [facility] Tissue (Colon, Splenic Flexure) 08/26/2024 7:45 AM EDT 08/26/2024 10:17 AM EDT Comment:Pre-op diagnosis: Blood in stool [K92.1] us Ryan Dan Jr., MD PATHOLOGY/CYTOLOGY ORDE RABLES Final Result [facility] [address] [facility] [address] [place] [address] * POC HCGU (Approved Hospitals ONLY) (08/26/2024 6:54 AM EDT) HCGU Negative Negative POCT [facility] QC Acceptable POCT [facility] Lot Number [id number] POCT [facility] Expiration Date 12/13/2025 [facility]CT [facility] Comment [facility] URINE SPECIMEN / Unknown 08/26/2024 6:54 AM EDT us Porsche Bradford POLISHER AND SANDER POINT OF CARE TEST ORDERAB LES Final Result Performing Organization Address [facility]/ZIP Co [place] [address], [facility] [phone] from Last 3 Months Insurance [facility] [address] OPEN ACCESS PLUS Care Teams Window Shade Estimator Relationship Specialty Start Date End Date Viola Conde APRN [facility] [address], [address] [place] [address] PCP - General Nurse Practitioner Family 01/06/24
--- OUTSIDE RECORDS SUMMARY | 2024-10-05 08:22 | XMS_ITS | Encounter Summary ---
Author Organization [facility] Address [address] [place] [address] Care Team Providers Care Tour Counselor Name Role Phone Viola Conde APRN Primary Care Provid er Encounter Details Date Type Department Care Team (Late st Contact Info) Description 09/02/2024 Results Follow-Up [facility] Endoscopy [address] [place] [address] Rafael Dan Jr., MD [address] [place] [address] [place] [phone] Surgical Specimen: Colon, Splenic Flexure Social History Tobacco Use Types Packs/Day Years [...] [facility] [address] [facility] [address] [place] [phone] Deepika Patten APRN [address] [facility] [address] [place] [address] documented as of this encounter Visit Diagnoses Not on filedocumented in this encounter Care Teams Tour Counselor Relationship Specialty Start Date End Date Viola Conde APRN [address], [address] [place], [place] [id number] PCP - General Nurse Practitioner Family 01/06/24 documented as of this encounter
--- OUTSIDE RECORDS SUMMARY | 2024-10-05 08:22 | XMS_ITS | Encounter Summary ---
Author Organization [facility] Address [address] [place] [address] Care Team Providers Care Chocolate Molder Name Role Phone Viola Conde APRN Primary Care Provider [phone]- [phone] Nadia Mares MD Unavailable [phone] Encounter Details Date Type Department Care Team (Late Contact Info) Description 09/02/2019 Abstract [facility] [address] [place] [address] Brielle Blanca, RN EMERGENCY SERVICES Social History [...] Description 12/03/2024 10:30 AM EDT Office Visit [facility] [address] [facility], [address] [place] [address] Nadia Mares MD [address] [facility] Elena [facility] [address] [place] [address] documented as of this encounter Visit Diagnoses Not on filedocumented in this encounter Care Teams Chocolate Molder Relationship Specialty Start Date End Date Viola Conde APRN [address] [address] PCP - General 07/03/20 Nadia Mares MD [address] [facility] [address] [address] Consulting Physician Hematology and Oncology 06/04/23 documented as of this encounter
--- OUTSIDE RECORDS SUMMARY | 2024-10-05 08:22 | XMS_ITS | Clinical Summary ---
Author Organization [facility] Address [address] [place] [address] Care Team Providers Care Spray Booth Operator Name Role Phone Viola Conde APRN Primary Care Provider [phone] Nadia Mares MD Unavailable [phone] Allergies Active Allergy Reactions Criticality Noted Date Comments Aspirin Rash Low 05/12/2020 Neomycin Swelling High 05/12/2020 Medications Multiple Vitamin (MULTIVITAMIN ADULT PO) Take 1 tablet by mouth daily. Active Cyanocobalamin (B-12) [address] 1 capsule under the tongue daily. 4 Active ondansetron (Zofran) 4 MG tablet 1 TAB(S) ORALLY EVERY 6 HOURS NEEDED FOR NAUSEA/VOMITING 3 DAYS 4 Active acetaminophen (Tylenol) 325 MG tablet Take 2 tablets by mouth every 6 hours as needed for headaches or pain. Under [place] law, monthly prescriptions (30 days) can be refilled at 25 days and three-month prescriptions (90 days) at 80 days. Please contact the insurance company with questions if refills are denied. 100 tablet 5 Active ibuprofen 600 MG tablet Take 1 tablet by mouth every 6 hours as needed for mild pain or moderate pain. 60 tablet 5 Active tamoxifen (Nolvadex) 20 MG chemo tablet TAKE 1 TABLET ONCE DAILY WITH WATER OR ANY OTHER NON-ALCOHOLIC DRINK WITH OR WITHOUT FOOD AT AROUND THE SAME TIME EVERY DAY 90 tablet 3 5 Active Active Problems Problem Noted Date Diagnosed Date Abnormal uterine and vaginal bleeding, unspecifi ed 04/26/2024 Endometrial thickening on ultrasound 04/26/2024 Encounter for monitoring adjuvant hormonal thera py 06/05/2023 Malignant neoplasm of upper- inner quadrant of right breast in female, estrogen receptor positive 08/16/2020 Cancer Staging:Clinical stage from 05/01/2020:Stage IA(cT1, cN0, cM0, G1, ER+, NC+, HER2-) - Signed by Nadia Mares MD on 08/16/2020 Pathologic stage from 07/03/2020:Stage IA(pT1c, pN0(sn), cM0, G1, ER+, NC+, HER2- ) - Signed by Nadia Mares MD on 08/16/2020 Encounters Date Type Department Care Team Description 07/24/2024 Refill PAV Breast [facility] [address] [place] [address], [address] [place] [address] Shannon Spencer, MATH TEACHER from Last 3 Months Immunizations Immunization Administration Dates Next Due Hep B, adult 06/13/2003 Pfizer-BioNTech COVID-19 Biv alent (Luther Cap) 12+ years (marivel-sucrose) 11/13/2021 Family History Medical History Relation Name Comments Diabetes Father John Cancer Maternal Grandfather Prostate Prostate cancer Maternal Grandfather Prostate Fami ly history of malignant neoplasm of prostate Arthritis Mother [place] Breast cancer Paternal Grandmother Rosemary Family history of malignant neoplasm of breast Cancer Paternal Grandmother Rosemary Arthritis Sister Saskia Relation Name Status Comments Father John Maternal Grandfather Prostate Mother [place] Paternal Grandmother Rosemary Sister Saskia Social History Tobacco Use Types Packs/Day Years Used Date Smoking Tobacco: Never Passive Smoke Exposure: Never Smokeless Tobacco: Never Tobacco Cessation:Counseling Given: Not Answered Alcohol Use Standard Drinks/Week Comments Yes 3 [...] Sign Reading Time Taken Comments Blood Pressure 129/78 06/10/2024 11:07 AM EDT Pulse 70 06/10/2024 11:07 AM EDT Temperature 36.7 C (98.1 F) 06/10/2024 11:07 AM EDT Respiratory Rate 16 06/10/2024 11:0 7 AM EDT Oxygen Saturation 100% 06/10/2024 11: 07 AM EDT Inhaled Oxygen Concentration - - Weight 77.4 kg (170 lb 10.2 oz) 025 11:07 AM EDT Height 154.9 cm (5' 1 ) 06/10/2024 9:45 AM EDT Body Mass Index 32.24 06/10/2024 9:45 AM EDT Plan of Treatment Upcoming Encounters Date Type Department Care Team (Late st Contact Info) Description 12/03/2024 10:30 AM EDT Office Visit [facility] [address] [facility], [address] [place] [address] Nadia Mares MD [address] [facility] [address] [place] [address] Health Maintenance Due Date Last Done Comments Dental X-Ray: Full Mouth 1979 [facility]-HIV Screening 1979 [facility]-Hepatitis C Screening 1979 [facility]-/Child/Adol SDOH Screenings 1979 [facility]-Varicella Vaccines (1 of 2 - 13+ 2-dose series) 07/10/1992 [facility]- SDOH Screenings 07/10/1997 [facility]-Adult SDOH Screenings 07/10/1997 [facility]-Pneumococcal Vaccine: Pediatrics (0 to 5 Years) and At-Risk Patients (6 to 49 Years) (1 of 2 - PCV) 07/10/1998 [facility]-Zoster Vaccines (1 of 2) 07/10/1998 [facility]-Pap Smear 07/10/2000 [facility]-Hepatitis B Vaccines (2 of 3 - 19+ 3-dose series) 2003 06/13/2003 HPV Vaccines (1 - Risk 3-dose SCDM series) 07/10/2006 [facility]-Cervical Cancer Screening 07/10/2009 [facility]-HPV/Cotest 07/10/2009 Dental X-Ray: Bitewings 03/14/2021 03/13/19, 11/27/2018, 10/13/2017 Dental Oral Exam 11/12/2021 05/11/2021, 11/03/2020 Dental Prophylaxis 11/12/2021 05/11/2021, 0 11/03/2020, 03/13/2020, Additional history exists [id number] Vaccine ( season) 2023 09/30/2023, 12/12/2022, 11/13/2021, Additional history exists CT Colonography 07/10/2024 Colonoscopy 07/10/2024 FIT-DNA 07/10/2024 FIT 07/10/2024 FOBT 07/10/2024 Sigmoidoscopy 07/10/2024 [facility]-Colorectal Cancer Screening 07/10/2024 [facility]-Influenza Vaccine (#1) 10/21/202412/29, 12/12/2022, 11/13/2021, Additional history exists [facility]-Depression Screening 06/06/2025 06/06/2024, 05/21 [facility]-DTaP,Tdap,and Td Vaccines (3 - Td or Tdap) 09/17/2032 09/17/2022, 03/21/2012 [facility]-Hepatitis A Vaccines Aged Out 09/27/2018, 01/21 No longer eligible based on patient's age to complete this topic [facility]-Obesity Intervention Completed 06/07/2024, 08/2024 [facility]-HIB Vaccines Aged Out No longer e ligible based on patient's age to complete this topic [facility]-IPV Vaccines Aged Out No longer e ligible based on patient's age to complete this topic [facility]-Rotavirus Vaccines Aged Out No lo nger eligible based on patient's age to complete this topic Procedures Procedure Name Priority Date/Time Associated Diagnosis Comments PROPHYLAXIS - ADULT Routine 05/11/2021 8 :00 AM EDT Encounter for dental examination PERIODIC ORAL EVALUATION - ESTABLISHED PATIENT Routine 05/11/2021 8:00 AM EDT Encounter for dental examination BITEWINGS - 4 RADIOGRAPHIC IMAGES Routine 03/13/2020 12:00 AM EST from Last 3 Months or Most Recently Relevant to Health Maintenance Insurance [employer] [place] [id number] [employer] Care Teams Spray Booth Operator Relationship Specialty Start Date End Date Viola Conde APRN [facility] [address] [address] PCP - General 07/03/20 Nadia Mares MD [address] [facility] Elena Jluian [address] [address] Consulting Physician Hematology and Oncology 06/04/23
[2024-10-05 08:42] LABS: Hematocrit 35.2 % (37.0-47.0); Hemoglobin 11.5 g/dL (12.2-16.2); Immature Granulocytes % 0.2 %; Mean Corpuscular HGB Conc 32.7 g/dL (31.8-35.4); Mean Corpuscular Hemoglobin 28.9 pg (27.0-31.2); Mean Corpuscular Volume 88.4 fl (81-99); Nucleated Red Blood Cells % 0 %; Platelet Count 305 K/mm3 (142-424); Red Blood Count 3.98 M/mm3 (4.20-5.40); Red Cell Distribution Width-SD 44.7 fL; White Blood Count 5.0 K/mm3 (4.8-10.8)
[2024-10-05 09:40] LABS: Hemoglobin A1C 5.6 % (4.0-6.0)
[2024-10-05 09:58] LABS: Alanine Aminotransferase 17 U/L (12-78); Albumin Level 4.5 g/dl (3.5-5.0); Albumin/Globulin Ratio 2.1 (1.1-1.8); Alkaline Phosphatase 60 U/L (38-126); Anion Gap 12.4 mEq/L (5-15); Aspartate Amino Transferase 24 U/L (14-36); Bilirubin,Total 0.2 mg/dl (0.2-1.3); Blood Urea Nitrogen 15 mg/dl (7-17); Calcium 9.3 mg/dl (8.4-10.2); Carbon Dioxide 24 mmol/L (22.0-30.0); Chloride 106 mmol/L (98-107); Cholesterol 159 mg/dl (140-200); Creatinine,Serum 0.60 mg/dl (0.52-1.04); Estimated Glomerular Filt Rate 108 ml/min (>60); GFR (African American) 131 ML/MIN (>60); Globulin 2.1 g/dL (1.3-3.2); Glucose 94 mg/dl (74-100); HDL Cholesterol 61 mg/dl (40-60); Potassium 4.4 mmoL/L (3.5-5.1); Sodium 138 mmol/L (136-145); Total Protein,Serum 6.6 g/dl (6.3-8.2); Triglycerides 101 mg/dl (30-150)
== END 2024-10-05 23:59 | disposition home or self-care (01) ==
LOC: LAB 08:19
PROVIDERS: PCP Nurse Practitioner Family; Visit Provider Nurse Practitioner Family
DX: Z00.00 Encounter for general adult medical examination without abnormal findings (principal); Z85.3 Personal history of malignant neoplasm of breast
CPT/HCPCS: 36415; 80053; 80061; 83036; 85025